=== PATIENT | male | born 1995 | race Two or more races ===

== ENCOUNTER 2017-06-11 08:46 | Emergency (ER) | payer SELFPAY ==
--- NOTE | 2017-06-11 09:04 | UC ---
Abdominal Pain Male HPI - HPI Summary HPI Summary: right sided abdominal pain. Has had appendectomy. 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 Onset/Duration: Gradual Onset, Lasting Days - 3, Worse Since - onset Severity Initially: Mild Location: Discrete At: RLQ Radiates to: RLQ - along the side toward the ASIS Character: Burning Aggravating Factor(s):: Nothing Alleviating Factor(s): Nothing Associated Signs And Symptoms: Negative: Vomiting, Diarrhea - Allergies/Home Medications Allergies/Adverse Reactions: Allergies Allergy/AdvReac Type Severity Reaction Status Date / Time No Known Allergies Allergy Verified 06/11/17 09:02 PMH/Surg Hx/FS Hx/Imm Hx Previously Healthy: Yes - Social History Occupation: Employed Full-time Lives: Alone Review of Systems Gastrointestinal: Abdominal Pain All Other Systems Reviewed And Are Negative: Yes Physical Exam Triage Information Reviewed: Yes Appearance: Well-Appearing, No Pain Distress, Well-Nourished Vital Signs Reviewed: Yes Eyes: Positive: Conjunctiva Clear ENT: Positive: Pharynx normal, TMs normal - on the left, blocked by wax on the right Neck exam: Normal Respiratory Exam: Normal Cardiovascular Exam: Normal Abdomen Description: Positive: No Organomegaly, Soft. Negative: Nontender - Tender RLQ around the appendectomy scar., McBurney's Point Tenderness Bowel Sounds: Positive: Present Musculoskeletal Exam: Normal Neurological: Positive: Other: - hypersensitive to pinprick in the T12/ L1 dermatome. Psychological Exam: Normal Skin Exam: Normal Abd Pain Male Course/Dx - Differential Dx/Clinical Impression Differential Diagnosis/HQI/PQRI: Appendicitis, Constipation, Ureteral Stone Provider Diagnoses: Lumbar radiculopathy Discharge - Discharge Plan Condition: Stable Disposition: HOME Prescriptions: predniSONE TAB* [Deltasone TAB*] 20 mg PO DAILY #18 tab Patient Education Materials: Lumbar Radiculopathy (ED), Prednisone (By mouth) Print Language: HUNGARIAN Additional Instructions: Avoid activities that make it worse.
[2017-06-11 09:21] VITALS: BP 118/59
--- NOTE | 2017-06-11 10:08 | RAD ---
INDICATION: Lumbar radiculitis. COMPARISON: There are no prior studies available for comparison. TECHNIQUE: 5 views of the lumbar spine were obtained including lateral, oblique, AP and a coned-down lateral view of the lumbar sacral junction. FINDINGS: There is straightening of the lumbar spine with decrease in the normal lumbar lordosis. No acute fracture is seen. There appears to be a limbus vertebra at the L4 level. Disc spaces appear maintained. IMPRESSION: STRAIGHTENING OF THE LUMBAR SPINE WITH DECREASE IN THE NORMAL LUMBAR LORDOSIS.
== END 2017-06-11 10:39 | disposition home or self-care (01) ==
LOC: UCCORT 08:46
DX: M54.16 Radiculopathy, lumbar region (principal); Z90.89 Acquired absence of other organs
CPT/HCPCS: 72110; 81003; 99202; G0463